=== PATIENT | female | born 1965 | race African-American/Black ===

== ENCOUNTER 2019-06-22 07:33 | Emergency (ER) | payer OTHER ==
[~2019-06-22] VITALS: Ht 165.1 cm; Wt 93.0 kg
[~2019-06-22 07:33] MED LIST: LORTAB PO; MEDROLDOSEPACK PO; SLOW RELEASE I142 MG
[2019-06-22] MEDS ORDERED: SUPER THERAVIT1 EACH PO (07:50)
[2019-06-22] MEDS ORDERED: NORCO 5-325 TA1 EAC1 PO (09:40)
[2019-06-22] MEDS ORDERED: NORFLEX100 MG PO (09:40)
[2019-06-22] MEDS ORDERED: IBUPROFEN 800800 M1 PO (09:40)
[2019-06-22 09:55] VITALS: BP 139/80
== END 2019-06-22 11:08 | disposition home or self-care (01) ==
LOC: ER 07:33
DX: S39.012A Strain of muscle, fascia and tendon of lower back, initial encounter (principal); S16.1XXA Strain of muscle, fascia and tendon at neck level, initial encounter; M25.512 Pain in left shoulder; M25.561 Pain in right knee; Z98.890 Other specified postprocedural states; Z90.710 Acquired absence of both cervix and uterus; V73.5XXA Driver of bus injured in collision with car, pick-up truck or van in traffic accident, initial encounter; Y93.89 Activity, other specified; Y92.89 Other specified places as the place of occurrence of the external cause; Y99.8 Other external cause status

== ENCOUNTER → 2019-09-06 | Outpatient (CLI) | payer OTHER ==
[~2019-09-06] MED LIST changes: +IBUPROFEN 800800 M1 PO; +NORCO 5-325 TA1 EAC1 PO; +NORFLEX100 MG PO; +SUPER THERAVIT1 EACH PO
== END ==
LOC: RAD 11:12
DX: Z12.31 Encounter for screening mammogram for malignant neoplasm of breast (principal)